=== PATIENT | female | born 1985 | race Caucasian/White ===

== ENCOUNTER 2022-05-03 18:55 | Emergency (ER) | payer OTHER ==
[~2022-05-03] VITALS: Ht 157.5 cm; Wt 104.3 kg
--- NOTE | 2022-05-03 19:00 | NUR ---
CALLED TO TRIAGE NO RESPONSE
--- NOTE | 2022-05-03 19:06 | NUR ---
CALLED TO TRIAGE NO RESPONSE
--- NOTE | 2022-05-03 19:21 | NUR ---
CALLED TO TRIAGE NO RESPONSE
[2022-05-03 19:37] VITALS: BP 158/104
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
[2022-05-03] MEDS ORDERED: METH-1681 PO (20:17)
[2022-05-03] MEDS ORDERED: IBUP-2213 PO (20:17)
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
== END 2022-05-03 20:24 | disposition home or self-care (01) ==
LOC: MED 18:55
DX: S16.1XXA Strain of muscle, fascia and tendon at neck level, initial encounter (principal); S66.811A Strain of other specified muscles, fascia and tendons at wrist and hand level, right hand, initial encounter; S80.11XA Contusion of right lower leg, initial encounter; S40.022A Contusion of left upper arm, initial encounter; V49.88XA Car occupant (driver) (passenger) injured in other specified transport accidents, initial encounter; Y93.89 Activity, other specified; Y92.89 Other specified places as the place of occurrence of the external cause; Y99.8 Other external cause status
CPT/HCPCS: 99283